=== PATIENT | female | born 1975 | race Two or more races ===

== ENCOUNTER 2023-12-16 06:26 | Inpatient (IN) | payer OTHER ==
[~2023-12-16] VITALS: Ht 157.5 cm; Wt 65.8 kg
[2023-12-16] MEDS ORDERED: ONDANSETRON HCL/PF 4 MG/2 ML VIAL ONE (06:52)
[2023-12-16] MEDS ORDERED: MORPHINE SULFATE INJ 4 MG/ML DISP.SYRIN ONE (06:53)
[2023-12-16] MEDS: MORPHINE SULFATE INJ 2 MG/ML DISP.SYRIN IV ONE (07:02)
[2023-12-16] MEDS: IV NS 0.9% 500 ML BAG IV ONE (07:02)
[2023-12-16] MEDS: ONDANSETRON HCL/PF 4 MG/2 ML VIAL IVP ONE (07:02)
[2023-12-16 07:17] LABS: BASOPHILS # (AUTO) 0.1 K/uL (0.0-0.2); BASOPHILS % (AUTO) 0.8 % (0.0-2.0); EOSINOPHILS # (AUTO) 0.3 K/uL (0.0-0.7); EOSINOPHILS % (AUTO) 3.9 % (0.0-6.0); HEMATOCRIT 38 % (33-45); HEMOGLOBIN 12.9 g/dL (11.5-14.8); LYMPHOCYTES # (AUTO) 1.9 K/uL (0.8-4.8); LYMPHOCYTES % (AUTO) 28.2 % (20.0-44.0); MEAN CORPUSCULAR HEMOGLOBIN 29 PG (26.0-33.0); MEAN CORPUSCULAR HGB CONC 34 g/dl (31.0-36.0); MEAN CORPUSCULAR VOLUME 87 fL (82-100); MONOCYTES # (AUTO) 0.7 K/uL (0.1-1.30); MONOCYTES % (AUTO) 9.7 % (2.0-12.0); NEUTROPHILS # (AUTO) 3.9 K/uL (1.8-8.9); NEUTROPHILS % (AUTO) 57.4 % (43.0-81.0); PLATELET COUNT (AUTO) 226 K/uL (150-450); RED BLOOD CELL COUNT(AUTO) 4.39 MIL/uL (4.0-5.2); RED CELL DISTRIBUTION WIDTH 14.4 % (11.5-15.0); WHITE BLOOD COUNT (AUTO) 6.8 K/uL (4.3-11.0)
[2023-12-16] MEDS ORDERED: CT SWABBABLE VALVE TRANS SET 1 EA INFUS.SET MC ONE (07:22)
[2023-12-16] MEDS ORDERED: IOHEXOL-350 100 ML VIAL IV ONE ×2 (07:22→07:44)
[2023-12-16] MEDS ORDERED: IV NS 0.9% 250 ML IV ONE ×2 (07:22→07:45)
[2023-12-16 07:27] LABS: CALCIUM, SERUM 9.3 mg/dL (8.5-10.1); CARBON DIOXIDE 27 mmol/L (21-32); CHLORIDE 109 mmol/L (98-107); CREATININE 0.6 mg/dL (0.6-1.3); GLUCOSE 121 mg/dL (74-106); POTASSIUM 3.7 mmol/L (3.5-5.1); SODIUM SERUM 142 mmol/L (136-145); UREA NITROGEN, BLOOD 11 mg/dL (7-18)
[2023-12-16 07:39] LABS: NT-PRO BNP 990 pg/mL (0-125)
[2023-12-16 07:42] LABS: INR 9.1 (0.91-1.10); PARTIAL THROMBOPLASTIN TIME 90.4 SEC (24.3-34.3); PROTHROMBIN TIME 83.5 SECS (9.2-11.1)
[2023-12-16] MEDS ORDERED: PANT40TA2 PO (08:34)
[2023-12-16] MEDS ORDERED: FURO-144 PO (08:34)
[2023-12-16] MEDS ORDERED: LOSA50TA39 PO (08:34)
[2023-12-16] MEDS ORDERED: ATEN50TA PO (08:34)
[2023-12-16] MEDS ORDERED: SIMV-49 PO (08:34)
[2023-12-16] MEDS ORDERED: [UNRECOGNIZED DRUG - OTHER] PO (08:34)
[2023-12-16] MEDS: PHYTONADIONE 5 MG TABLET PO STA (08:45)
[2023-12-16 12:00] VITALS: BP 105/57; TEMP 98.2; O2SAT 100
[2023-12-16] MEDS ORDERED: ONDANSETRON HCL/PF 4 MG/2 ML VIAL IVP PRN (12:00)
[2023-12-16] MEDS ORDERED: MAGNESIUM HYDROXIDE 30 ML UDC PO PRN (12:00)
[2023-12-16] MEDS ORDERED: Z GUARD REMEDY 4 OZ OINT TP PRN (12:00)
[2023-12-16] MEDS: ACETAMINOPHEN 325 MG TABLET PO PRN (12:17)
[2023-12-16] MEDS ORDERED: PANTOPRAZOLE 40 MG TABLET.DR PO PRN (14:30)
[2023-12-16 16:00] VITALS: BP 152/78; TEMP 97.9; O2SAT 95
[2023-12-16 20:00] VITALS: BP 144/74; TEMP 97.4; O2SAT 97
[2023-12-16] MEDS ORDERED: ZOLPIDEM TARTRATE 5 MG TABLET PO PRN (22:00)
[2023-12-16] MEDS: PHYTONADIONE 5 MG TABLET PO ONE (23:20)
[2023-12-17] VITALS: BP 151/66; TEMP 97.8; O2SAT 96
[2023-12-17 04:00] VITALS: BP 142/98; TEMP 98; O2SAT 95
[2023-12-17] MEDS: MAG HYDROX/AL HYDROX/SIMETH 30 ML UDC PO PRN (06:08)
[2023-12-17] MEDS: hydrALAZINE HCL IV 20 MG VIAL IV PRN (06:18)
[2023-12-17 06:47] LABS: BASOPHILS % (AUTO) 0.8 % (0.0-2.0); EOSINOPHILS # (AUTO) 0.3 K/uL (0.0-0.7); EOSINOPHILS % (AUTO) 4.6 % (0.0-6.0); HEMATOCRIT 38 % (33-45); HEMOGLOBIN 12.7 g/dL (11.5-14.8); LYMPHOCYTES # (AUTO) 1.8 K/uL (0.8-4.8); LYMPHOCYTES % (AUTO) 28.3 % (20.0-44.0); MEAN CORPUSCULAR HEMOGLOBIN 29 PG (26.0-33.0); MEAN CORPUSCULAR HGB CONC 34 g/dl (31.0-36.0); MEAN CORPUSCULAR VOLUME 87 fL (82-100); MONOCYTES # (AUTO) 0.7 K/uL (0.1-1.30); MONOCYTES % (AUTO) 10.4 % (2.0-12.0); NEUTROPHILS # (AUTO) 3.6 K/uL (1.8-8.9); NEUTROPHILS % (AUTO) 55.9 % (43.0-81.0); PLATELET COUNT (AUTO) 244 K/uL (150-450); RED BLOOD CELL COUNT(AUTO) 4.32 MIL/uL (4.0-5.2); RED CELL DISTRIBUTION WIDTH 13.9 % (11.5-15.0); WHITE BLOOD COUNT (AUTO) 6.4 K/uL (4.3-11.0)
[2023-12-17 06:53] LABS: CALCIUM, SERUM 9.2 mg/dL (8.5-10.1); CREATININE 0.8 mg/dL (0.6-1.3); PHOSPHORUS 4.2 mg/dL (2.5-4.9); POTASSIUM 3.6 mmol/L (3.5-5.1)
[2023-12-17 07:20] LABS: THYROID STIMULATING HORMONE 1.25 uIU/mL (0.358-3.74)
[2023-12-17 08:00] VITALS: BP 142/81; TEMP 97.9; O2SAT 95
[2023-12-17] MEDS: PANTOPRAZOLE 40 MG TABLET.DR PO SCH (08:37)
[2023-12-17] MEDS: LOSARTAN POTASSIUM 50 MG TABLET PO SCH (08:37)
[2023-12-17] MEDS: FUROSEMIDE 40 MG TABLET PO SCH (08:38)
[2023-12-17] MEDS: ATENOLOL 50 MG TABLET PO SCH (08:38)
[2023-12-17] MEDS: ATORVASTATIN 10 MG TABLET PO SCH (08:38)
[2023-12-17 08:49] LABS: PROTHROMBIN TIME 87.9 SECS (9.2-11.1)
[2023-12-17 08:52] LABS: INR 9.62 (0.91-1.10)
[2023-12-17 09:01] LABS: ALBUMIN 3.5 g/dL (3.4-5.0); BILIRUBIN,DIRECT 0.1 mg/dL (0.0-0.2); BILIRUBIN,TOTAL 0.7 mg/dL (0.2-1.0); TOTAL PROTEIN, SERUM 6.8 g/dL (6.4-8.2)
[2023-12-17] MEDS ORDERED: SIMETHICONE/SOD BICARB/CIT AC 1 EACH GRAN.EF.PK PO ONE (11:14)
[2023-12-17] MEDS ORDERED: BARIUM SULFATE 98% 135 ML SUSP.RECON PO ONE (11:25)
[2023-12-17 12:00] VITALS: BP 142/81; TEMP 97.9; O2SAT 95
[2023-12-17] MEDS ORDERED: PANT40TA2 PO (14:21)
== END 2023-12-17 15:15 | disposition home or self-care (01) | DRG 392 ==
LOC: ER 06:32 → TELE1 09:58
PROVIDERS: ADMIT Student in an Organized Health Care Education/Training Program; ATTEND Student in an Organized Health Care Education/Training Program
DX: K20.90 Esophagitis, unspecified without bleeding (principal); J98.11 Atelectasis; E78.5 Hyperlipidemia, unspecified; R79.1 Abnormal coagulation profile; R13.10 Dysphagia, unspecified; Z79.01 Long term (current) use of anticoagulants; Z95.2 Presence of prosthetic heart valve; I11.9 Hypertensive heart disease without heart failure; K82.8 Other specified diseases of gallbladder
CPT/HCPCS: 36415; 71045-TC; 74230-TC; 76700-TC; 80048-TC; 80061-TC; 80076-TC; 83735-TC; 83880; 84100-TC; 84443-TC; 84484-TC; 85025-TC; 85610-TC; 85730-TC; 92526; 92611-TC; 93307-TC; G0378; J0360; J2270; J2405; J7040; J7050; Q9967